=== PATIENT | male | born 1940 | race Caucasian/White ===

== ENCOUNTER 2022-01-20 13:10 | Outpatient (CLI) | payer MEDICARE, SELFPAY ==
--- NOTE | ~2022-01-20 | PE_ITS ---
EXAMINATION: PET skull to mid thigh DATE: 01/20/2022 15:44 INDICATION: Cancer of prostate. TECHNIQUE: 10.141 mCi of Piflufolastat F-18 was administered i.v. Low dose computed tomography (CT) images were acquired from the base of the brain to the proximal thighs for attenuation correction and anatomic localization. Automated exposure control was employed. Dose-length product (DLP) was 658 mG y-cm. Positron emission tomography (PET) images were acquired in the same distribution. COMPARISON: None FINDINGS: Head/neck: There is mucosal thickening in the paranasal sinuses. There are no pathologically enlarged lymph nodes. There is increased activity involving the lacrimal glands, major salivary glands, phary nx, oral cavity, and glottis without abnormal CT correlate, likely physiologic. Chest: There is mild scarring at the lung apices. No pleural effusion. The heart size is normal. Ther e are coronary artery calcifications. No pericardial effusion. There is bilateral gynecomastia. There is an 8 mm subcutaneous mass superficial to the sternum, likely a sebaceous cyst. Abdomen/pelvis/proximal thighs: There is a 7 mm cyst in the liver. The gallbladder, spleen, pancreas, adrenal glands, and left kidney are normal. There is mild right hydronephrosis. There are changes of prostatectomy and pelvic lymph node dissection. There are bilateral inguinal hernias containing fat. There are no dilated loops of bowel. The appendix is normal. There is a 10 mm mass in the subcutaneo us fat in right anterior abdominal wall, likely benign. There is severe lumbar spondylosis. IMPRESSION: 1. No evidence of metastatic disease. 2. Mild right hydronephrosis. Reviewed, dictated and finalized at location A.
== END 2022-01-20 13:11 | disposition home or self-care (01) ==
PROVIDERS: PCP Family Medicine; Visit Provider Urology
DX: C61 Malignant neoplasm of prostate (principal); N13.30 Unspecified hydronephrosis; I25.10 Atherosclerotic heart disease of native coronary artery without angina pectoris; N62 Hypertrophy of breast; K40.20 Bilateral inguinal hernia, without obstruction or gangrene, not specified as recurrent; M47.896 Other spondylosis, lumbar region
CPT/HCPCS: 78815; A9552